=== PATIENT | male | born 1970 | race Caucasian/White ===

== ENCOUNTER 2016-10-16 16:17 | Emergency (ER) | payer OTHER ==
[2016-10-16 16:52] LABS: APPEARANCE CLEAR (CLEAR); BILIRUBIN NEGATIVE (NEGATIVE); COLOR YELLOW (YELLOW); GLUCOSE 1000 mg/dL (NEGATIVE); KETONE MODERATE mg/dL (NEGATIVE); LEUKOCYTE ESTERASE NEGATIVE (NEGATIVE); NITRITE NEGATIVE (NEGATIVE); PROTEIN NEGATIVE (NEGATIVE); SPECIFIC GRAVITY 1.015 (1.005-1.020); UROBILINOGEN NORMAL (NORMAL)
[2016-10-16 16:54] LABS: BACTERIA NONE SEEN /hpf (NONE SEEN); EPITHELIAL CELLS NSEEN /hpf (0-5); RED CELLS - URINE 0-5 /hpf (0-5); WHITE CELLS - URINE NSEEN /hpf (0-5)
[2016-10-16 17:07] LABS: BASOPHILS 0.1 % (0.0-2.0); EOSINOPHILS 0.1 % (0-7); HEMATOCRIT 40.9 % (42.0-54.0); HEMOGLOBIN 14.4 g/dL (13.5-17.5); IMMATURE GRANULOCYTES 1.3 % (0-5); MCH 29.9 pg (26.0-34.0); MCHC 35.2 g/dL (31.0-37.0); MCV 84.9 fL (80.0-100.0); MEAN PLATELET VOLUME 12.1 fL (7.4-10.4); MONOCYTES 2.7 % (2-11); NEUTROPHILS 84.8 % (40-80); PLATELET COUNT 290 10x3/uL (130-400); RBC 4.82 10x6/uL (4.20-6.10); RDW 12.7 % (11.5-14.5); WBC 15.7 10x3/uL (4.8-10.8)
[2016-10-16 17:20] LABS: HEMOGLOBIN A1C 13.2 % (4.8-6.0)
[2016-10-16 17:34] LABS: KETONE - SERUM LARGE mg/dL (NEGATIVE)
[2016-10-16 17:35] LABS: UDS - AMPHET NEGATIVE QUAL (NEGATIVE); UDS - BARB NEGATIVE QUAL (NEGATIVE); UDS - BENZO NEGATIVE QUAL (NEGATIVE); UDS - COCAINE NEGATIVE QUAL (NEGATIVE); UDS - METH NEGATIVE QUAL (NEGATIVE); UDS - OPIATE NEGATIVE QUAL (NEGATIVE); UDS - PCP NEGATIVE QUAL (NEGATIVE); UDS - THC NEGATIVE QUAL (NEGATIVE)
[2016-10-16 18:01] LABS: ALBUMIN 3.9 g/dL (3.4-5.0); ALKALINE PHOSPHATASE 109 U/L (46-116); ALT (SGPT) 28 U/L (10-68); AMYLASE - SERUM 24 U/L (25-115); BILIRUBIN - TOTAL 0.56 mg/dL (0.2-1.3); CALCIUM 8.8 mg/dL (8.5-10.1); CARBON DIOXIDE 13.4 mmol/L (21.0-32.0); CREATINE KINASE 219 UL (21-232); CREATININE - SERUM 2.1 mg/dL (0.6-1.3); LIPASE 84 U/L (73-393); PRO BNP 149 pg/mL (0-125); PROTEIN - SERUM 7.8 g/dL (6.4-8.2); SODIUM 128 mmol/L (136-145); UREA NITROGEN 61 mg/dL (7-18); eGFR NON AFRICAN AMERICAN 36 mL/min (90-120)
[2016-10-16 18:02] LABS: CALC OSMOLALITY 309 mosm/kg (275-300); TROPONIN-I < 0.017 ng/mL (0.000-0.060)
[2016-10-16 18:03] LABS: GLUCOSE 755 mg/dL (74-106)
[2016-10-16 18:04] LABS: CHLORIDE - SERUM 84 mmol/L (98-107)
== END 2016-10-16 19:45 | disposition short-term general hospital (02) ==
LOC: D.ER 16:17
PROVIDERS: Family Medicine
DX: E13.10 Other specified diabetes mellitus with ketoacidosis without coma (principal); N28.9 Disorder of kidney and ureter, unspecified; I45.10 Unspecified right bundle-branch block; I10 Essential (primary) hypertension

== ENCOUNTER 2019-07-19 23:19 | Emergency (ER) | payer OTHER ==
[~2019-07-19] VITALS: Ht 170.2 cm; Wt 90.9 kg
[2019-07-19 23:25] VITALS: Ht 170.2 cm; Wt 90.9 kg
[2019-07-19] MEDS ORDERED: NOVOLOG100 UNIT/1 SC (23:30)
[2019-07-19] MEDS ORDERED: LANTUS SOL100 UNIT/1 SC (23:30)
[2019-07-19 23:38] LABS: HEMATOCRIT 32.2 % (42.0-54.0); HEMOGLOBIN 11.4 g/dL (13.5-17.5); MCH 30.2 pg (26.0-34.0); MCHC 35.4 g/dL (31.0-37.0); MCV 85.2 fL (80.0-100.0); MEAN PLATELET VOLUME 9.8 fL (7.4-10.4); NEUTROPHILS 78.2 % (40-80); RBC 3.78 10x6/uL (4.20-6.10); RDW 13.5 % (11.5-14.5); WBC 12.3 10x3/uL (4.8-10.8)
[2019-07-19 23:41] LABS: PLATELET COUNT 202 10x3/uL (130-400)
[2019-07-19 23:52] LABS: ALBUMIN 3.8 g/dL (3.4-5.0); ALKALINE PHOSPHATASE 64 U/L (46-116); ALT (SGPT) 26 U/L (10-68); BILIRUBIN - TOTAL 0.42 mg/dL (0.2-1.3); CALC OSMOLALITY 261 mosm/kg (275-300); CALCIUM 8.3 mg/dL (8.5-10.1); CARBON DIOXIDE 25.4 mmol/L (21.0-32.0); CHLORIDE - SERUM 93 mmol/L (98-107); CREATININE - SERUM 2.3 mg/dL (0.6-1.3); POTASSIUM - SERUM 4.5 mmol/L (3.5-5.1); PROTEIN - SERUM 7.7 g/dL (6.4-8.2); SODIUM 129 mmol/L (136-145); UREA NITROGEN 28 mg/dL (7-18); eGFR NON AFRICAN AMERICAN 32 mL/min (90-120)
[2019-07-20 00:02] LABS: GLUCOSE 48 mg/dL (74-106)
[2019-07-20 00:03] LABS: LIPASE 51 U/L (73-393); MAGNESIUM - SERUM 1.1 mg/dL (1.8-2.4); PRO BNP 104 pg/mL (0-125); THYROID STIMULATING HORMONE 0.86 uIU/mL (0.36-3.74)
[2019-07-20 00:12] LABS: TROPONIN-I < 0.017 ng/mL (0.000-0.060)
[2019-07-20 01:04] LABS: APPEARANCE CLEAR (CLEAR); COLOR YELLOW (YELLOW); GLUCOSE 1000 mg/dL (NEGATIVE); NITRITE NEGATIVE (NEGATIVE); PROTEIN NEGATIVE (NEGATIVE)
[2019-07-20 01:05] LABS: BILIRUBIN NEGATIVE (NEGATIVE); KETONE NEGATIVE (NEGATIVE); UROBILINOGEN NORMAL (NORMAL)
[2019-07-20 01:06] LABS: BACTERIA FEW /hpf (NEGATIVE); EPITHELIAL CELLS 0-5 /hpf (0-5); RED CELLS - URINE 0-5 /hpf (0-5); WHITE CELLS - URINE 0-5 /hpf (NEGATIVE)
[2019-07-20 01:19] VITALS: BP 143/65
== END 2019-07-20 01:15 | disposition left against medical advice (07) ==
LOC: D.ER 23:19
PROVIDERS: Family Medicine
DX: E11.649 Type 2 diabetes mellitus with hypoglycemia without coma (principal); Z79.4 Long term (current) use of insulin; N28.9 Disorder of kidney and ureter, unspecified; R49.22 Hyponasality

== ENCOUNTER 2020-06-09 17:39 | Inpatient (IN) | payer OTHER ==
[~2020-06-09] VITALS: Ht 170.2 cm; Wt 80.3 kg
[~2020-06-09 17:39] MED LIST: LANTUS SOL100 UNIT/1 SC; NOVOLOG100 UNIT/1 SC
--- NOTE | 2020-06-09 17:49 | NUR ---
[facility] GAVE PT 4 MG ZOFRAN WITH NO RELIEF
--- NOTE | 2020-06-09 18:28 | NUR ---
[facility] EMESIS + PROVIDER NOTIFIED. ASSISTED PT TO RESTROOM.
[2020-06-09 18:39] LABS: BASOPHILS 0.2 % (0-2); EOSINOPHILS 0.1 % (0-7); HEMATOCRIT 36.6 % (42.0-54.0); HEMOGLOBIN 12.5 g/dL (13.5-17.5); IMMATURE GRANULOCYTES 0.6 % (0-5); MCH 28.9 pg (26.0-34.0); MCHC 34.2 g/dL (31.0-37.0); MCV 84.5 fL (80.0-100.0); MEAN PLATELET VOLUME 11.2 fL (7.4-10.4); MONOCYTES 2.9 % (2-11); NEUTROPHILS 86.2 % (40-80); PLATELET COUNT 188 10x3/uL (130-400); RBC 4.33 10x6/uL (4.20-6.10); RDW 12.2 % (11.5-14.5)
[2020-06-09 18:56] LABS: INR 1.06 (0.85-1.17); PROTIME 13.7 SECONDS (11.6-15.0)
[2020-06-09 19:00] LABS: ALBUMIN 3.9 g/dL (3.4-5.0); ANION GAP 26.1 mmol/L (8-16); BILIRUBIN - TOTAL 0.58 mg/dL (0.2-1.3); CALCIUM 9.9 mg/dL (8.5-10.1); CREATININE - SERUM 1.9 mg/dL (0.6-1.3); POTASSIUM - SERUM 5.1 mmol/L (3.5-5.1); PROTEIN - SERUM 7.8 g/dL (6.4-8.2)
--- NOTE | 2020-06-09 19:00 | NUR ---
RPORT TO SONNY SAM.
[2020-06-09 20:53] LABS: BILIRUBIN NEGATIVE (NEGATIVE); KETONE MODERATE mg/dL (NEGATIVE); NITRITE NEGATIVE (NEGATIVE); UROBILINOGEN NORMAL (NORMAL)
--- NOTE | 2020-06-09 21:00 | NUR ---
[facility] CALLED AND STATED NO B[facility] SPACE FOR PT, PT TO STAY AT THIS FACILITY AND BE ADMITTED.
[2020-06-09 22:16] LABS: HEMATOCRIT 34.7 % (42.0-54.0); HEMOGLOBIN 11.9 g/dL (13.5-17.5)
[2020-06-09 22:45] LABS: ANION GAP 22.1 mmol/L (8-16); CALCIUM 8.8 mg/dL (8.5-10.1); CARBON DIOXIDE 19.7 mmol/L (21.0-32.0); CREATININE - SERUM 1.9 mg/dL (0.6-1.3); POTASSIUM - SERUM 4.8 mmol/L (3.5-5.1)
[2020-06-10 00:03] VITALS: BP 145/80; BMI 27.8
[2020-06-10 02:16] LABS: HEMATOCRIT 32.1 % (42.0-54.0); HEMOGLOBIN 11.1 g/dL (13.5-17.5)
[2020-06-10 02:21] LABS: ANION GAP 16.6 mmol/L (8-16); CALCIUM 8.5 mg/dL (8.5-10.1); CARBON DIOXIDE 21.8 mmol/L (21.0-32.0); CREATININE - SERUM 1.8 mg/dL (0.6-1.3); POTASSIUM - SERUM 4.4 mmol/L (3.5-5.1)
[2020-06-10 06:51] LABS: BASOPHILS 0.2 % (0-2); EOSINOPHILS 0 % (0-7); HEMATOCRIT 29.7 % (42.0-54.0); HEMOGLOBIN 10.3 g/dL (13.5-17.5); IMMATURE GRANULOCYTES 0.3 % (0-5); MCH 28.8 pg (26.0-34.0); MCHC 34.7 g/dL (31.0-37.0); NEUTROPHILS 75.5 % (40-80); PLATELET COUNT 165 10x3/uL (130-400); RBC 3.58 10x6/uL (4.20-6.10); RDW 12.2 % (11.5-14.5); WBC 12.6 10x3/uL (4.8-10.8)
[2020-06-10 07:00] VITALS: BP 131/83
--- NOTE | 2020-06-10 07:05 | NUR ---
PT HAS REFUSED ALL BP AND VS AFTER ADMISSION TO THIS UNIT
[2020-06-10 07:35] LABS: ANION GAP 15.3 mmol/L (8-16); CALCIUM 8.4 mg/dL (8.5-10.1); CARBON DIOXIDE 23.5 mmol/L (21.0-32.0); CREATININE - SERUM 1.7 mg/dL (0.6-1.3); MAGNESIUM - SERUM 1.3 mg/dL (1.8-2.4); PHOSPHOROUS 3.8 mg/dL (2.5-4.9); POTASSIUM - SERUM 3.8 mmol/L (3.5-5.1); THYROID STIMULATING HORMONE 0.36 uIU/mL (0.36-3.74)
--- NOTE | 2020-06-10 08:25 | NUR ---
ANION GAP CLOSED AND KETONES NOW NEGATIVE. PAGED PRIMARY TO INQUIRE ABOUT D/C OF INSULIN DRIP. BLOOD SUGAR 155 PT ALLOWED CLEAR LIQUID BREAKFAST AND DRINKING IT NOW. NO CURRENT NEEDS. WILL CPOC.
--- NOTE | 2020-06-10 09:05 | NUR ---
INSULIN DRIP TO BE D/C IN 1HR. 4UNITS OF INSULIN GIVEN PER SS. REGULAR BREAKFAST ORDERED. PT STATES HE IS FEELING GOOD OVERALL AND HOPES TO D/C TODAY, EXPLAINED TO HIM HE WILL NEED TO MOST LIKELY STAY OVERNIGHT TO [facility] HIS LABS REGARDING HIS DKA. WILL AWAIT PRIMARY TO ROUND. CL IN REACH, BED IN LOWEST, SIDE RAILS X2. WILL CPOC.
[2020-06-10] MEDS ORDERED: LANTUS INS100 UNITS/ SC (09:12)
--- NOTE | 2020-06-10 10:15 | NUR ---
STOPPED INSULIN DRIP ITS BEEN AN HR AFTER FIRST DOSE OF SS INSULIN. PT SITTING UP IN BED RESTING QUIETLY TALKING ON THE PHONE. VSS. PT DENIES ANY CURRENT PAIN OR NEEDS AT THIS TIME. CL IN REACH. WILL CTM.
[2020-06-10 10:22] LABS: ANION GAP 14.1 mmol/L (8-16); CALCIUM 7.9 mg/dL (8.5-10.1); CARBON DIOXIDE 21.2 mmol/L (21.0-32.0); CREATININE - SERUM 1.6 mg/dL (0.6-1.3); POTASSIUM - SERUM 3.3 mmol/L (3.5-5.1)
[2020-06-10 10:55] VITALS: Ht 170.2 cm; Wt 80.3 kg
[2020-06-10 11:00] VITALS: BP 127/79
--- NOTE | 2020-06-10 11:34 | NUR ---
PROVIDED PT WITH POTASSIUM REPLACEMENT PER PROTOCOL. PT ALSO C/O ABDOMINAL PAIN REQUESTING AND PROVIDED WITH PRN PAIN MEDICATION. AT BEDSIDE ROUNDING. DISCUSSED PLAN OF CARE AND PT VERBALIZED UNDERSTANDING. NO CURRENT NEEDS AT THIS TIME. CL IN REACH, BED IN LOWEST, SIDE RAILS X2. WILL CPOC.
--- NOTE | 2020-06-10 12:18 | NUR ---
FSBS 140S. NO ACTION REQUIRED PER SS. PT SITTING UP IN BED EATING LUNCH. VSS. NO IMMEDIATE NEEDS NOTED AT THIS TIME. CL IN REACH, WILL CTM.
--- NOTE | 2020-06-10 15:30 | NUR ---
MAGNESIUM REPLACED PER ELECTROLYTE PROTCOL. PT STILL REQUESTING TO BE DISCHARGED AND STATES HE HAS STUFF TO TAKE CARE OF AT HOME AND IS FEELING MUCH BETTER. AWARE AND AWAITING 1400 LAB RESULTS. WILL CTM.
[2020-06-10 15:57] LABS: ANION GAP 12.4 mmol/L (8-16); CALCIUM 7.9 mg/dL (8.5-10.1); CARBON DIOXIDE 21.3 mmol/L (21.0-32.0); CREATININE - SERUM 1.4 mg/dL (0.6-1.3); POTASSIUM - SERUM 3.7 mmol/L (3.5-5.1)
--- NOTE | 2020-06-10 16:09 | NUR ---
LABS BACK AND PTS ANION GAP CONTINUES TO DECREASE. PT IS STABLE AND ADAMENT ABOUT DISCHARGING. PAGED AND WILL PLACE DISCHARGE ORDERS.
[2020-06-10] MEDS ORDERED: OMEPRAZOLE40 MG PO (16:10)
--- NOTE | 2020-06-10 17:11 | NUR ---
D/C PTS L.AC PIV WITH CATHETER TIP FULLY INTACT. D/C PTS R.FA PIV WITH CATHETER TIP FULLY INTACT. DISCHARGE TEACHING PROVIDED AND PAPERS SIGNED. PT VERBALIZED UNDERSTANDING AND DENIES ANY QUESTIONS OR CONCERNS. ALL BELONGINGS COLLECTED AND ON PT. PTS IS HERE FOR TRANSPORTATION. ESCORTED PT OUT VIA WHEELCHAIR. NO FURTHER NEEDS.
[2020-06-10] MEDS ORDERED: ZOFRAN ODT4 MG/UDTAB PO (18:59)
[2020-06-10] MEDS ORDERED: REGLAN10 MG PO (18:59)
== END 2020-06-10 17:18 | disposition home or self-care (01) | DRG 638 ==
LOC: D.ER 17:39 → D.ICU 21:06
PROVIDERS: Emergency Medicine; Family Medicine; ADMIT Family Medicine; ATTEND Family Medicine
DX: E11.10 Type 2 diabetes mellitus with ketoacidosis without coma (principal); N17.9 Acute kidney failure, unspecified; K92.2 Gastrointestinal hemorrhage, unspecified; I10 Essential (primary) hypertension; E78.5 Hyperlipidemia, unspecified; K21.9 Gastro-esophageal reflux disease without esophagitis; F41.8 Other specified anxiety disorders; F43.10 Post-traumatic stress disorder, unspecified

== ENCOUNTER 2020-06-10 17:48 | Emergency (ER) | payer OTHER ==
[~2020-06-10] VITALS: Ht 170.2 cm; Wt 77.3 kg
[~2020-06-10 17:48] MED LIST changes: +LANTUS INS100 UNITS/ SC; +OMEPRAZOLE40 MG PO
[2020-06-10 17:53] VITALS: Ht 170.2 cm; Wt 77.3 kg
[2020-06-10 18:28] LABS: BASOPHILS 0.2 % (0-2); EOSINOPHILS 0.9 % (0-7); HEMATOCRIT 31.8 % (42.0-54.0); HEMOGLOBIN 10.8 g/dL (13.5-17.5); IMMATURE GRANULOCYTES 0.4 % (0-5); LYMPHOCYTES 22.8 % (15-50); MCH 28.6 pg (26.0-34.0); MCV 84.4 fL (80.0-100.0); MEAN PLATELET VOLUME 10.3 fL (7.4-10.4); MONOCYTES 6.8 % (2-11); NEUTROPHILS 68.9 % (40-80); PLATELET COUNT 151 10x3/uL (130-400); RBC 3.77 10x6/uL (4.20-6.10); RDW 12.3 % (11.5-14.5); WBC 10.2 10x3/uL (4.8-10.8)
[2020-06-10 18:39] LABS: ANION GAP 11.8 mmol/L (8-16); CALCIUM 8.7 mg/dL (8.5-10.1); CARBON DIOXIDE 23.1 mmol/L (21.0-32.0); CREATININE - SERUM 1.5 mg/dL (0.6-1.3); POTASSIUM - SERUM 3.9 mmol/L (3.5-5.1)
[2020-06-10 18:43] LABS: ALBUMIN 3.4 g/dL (3.4-5.0); BILIRUBIN - TOTAL 0.44 mg/dL (0.2-1.3); PROTEIN - SERUM 7.4 g/dL (6.4-8.2)
[2020-06-10] MEDS ORDERED: REGLAN10 MG PO (18:59)
[2020-06-10] MEDS ORDERED: ZOFRAN ODT4 MG/UDTAB PO (18:59)
[2020-06-10 19:23] VITALS: BP 136/65
== END 2020-06-10 19:24 | disposition home or self-care (01) ==
LOC: D.ER 17:48
PROVIDERS: Family Medicine
DX: R11.10 Vomiting, unspecified (principal); E11.9 Type 2 diabetes mellitus without complications; Z79.4 Long term (current) use of insulin; I10 Essential (primary) hypertension; K21.9 Gastro-esophageal reflux disease without esophagitis